=== PATIENT | male | born 1960 | race Caucasian/White ===

== ENCOUNTER 2020-05-06 07:27 | Emergency (ER) | payer OTHER ==
[2020-05-06 11:17] LABS: BASOPHIL 0.5 % (0-2); EOSINOPHIL 0.6 % (0-5); HCT 46.9 % (42.0-52.0); HGB 15.4 g/dl (13.2-18.0); LYMPHOCYTE 8.7 % (15-48); MCH 28.6 pg (25.0-31.0); MCHC 32.8 g/dL (32.0-36.0); MONOCYTE 6.5 % (0-12); MPV 9.4 fL (6.0-9.5); NEUTROPHIL 83.5 % (41-80); NRBC 0; PLT 232 K/uL (150-400); RBC 5.39 M/uL (4.70-6.00); WBC 12.8 K/uL (4.0-10.5)
[2020-05-06 11:27] LABS: ALBUMIN 3.6 g/dL (3.4-5.0); BILIRUBIN - TOTAL 0.4 mg/dL (0.2-1.0); BUN/CREAT RATIO (CALC) 18.9 RATIO; CREATININE 0.95 mg/dL (0.67-1.17); GLOBULIN (CALCULATION) 3.6 g/dL; POTASSIUM 4.5 mmol/L (3.5-5.1); TOTAL PROTEIN 7.2 g/dL (6.4-8.2)
[2020-05-06 11:40] LABS: INR 0.99 (0.9-1.2); PROTHROMBIN TIME 12.4 SECONDS (11.4-13.6); PTT 28.3 SECONDS (22.2-34.7)
[2020-05-06] MEDS ORDERED: AUGMENTIN 875-1 EACH PO (14:29)
== END 2020-05-06 15:36 | disposition home or self-care (01) ==
LOC: FER 07:27
PROVIDERS: Internal Medicine
DX: S41.111A Laceration without foreign body of right upper arm, initial encounter (principal); V49.40XA Driver injured in collision with unspecified motor vehicles in traffic accident, initial encounter; Y92.410 Unspecified street and highway as the place of occurrence of the external cause; Z23 Encounter for immunization
CPT/HCPCS: 36415; 73060; 73090; 73201; 80053; 85025; 85610; 85730; 90471; 90715; 96372; J2270; Q9967

== ENCOUNTER → 2021-08-16 | Day surgery (SDC) | payer OTHER ==
[~2021-08-16] VITALS: Ht 170.2 cm; Wt 118.0 kg
[~2021-08-16] MED LIST: AUGMENTIN 875-1 EACH PO; DICLOFENAC SODI75 MG PO; LEVOTHYROXINE100 MC2 PO; LIPITOR40 MG PO
[2021-08-16 08:14] LABS: HCT 44.3 % (42.0-52.0); MCH 29.1 pg (25.0-31.0); MCHC 33.9 g/dL (32.0-36.0); MPV 9.4 fL (6.0-9.5); RBC 5.15 M/uL (4.70-6.00); RDW 13.7 % (11.5-14.0); WBC 5.4 K/uL (4.0-10.5)
[2021-08-16 08:44] LABS: ALBUMIN 3.9 g/dL (3.4-5.0); BILIRUBIN - TOTAL 0.8 mg/dL (0.2-1.0); GLOBULIN (CALCULATION) 3.6 g/dL; POTASSIUM 3.8 mmol/L (3.5-5.1); TOTAL PROTEIN 7.5 g/dL (6.4-8.2)
== END | disposition home or self-care (01) ==
LOC: FAS 07-19 09:30
PROVIDERS: Surgery
DX: K62.89 Other specified diseases of anus and rectum (principal); K64.8 Other hemorrhoids; K58.9 Irritable bowel syndrome, unspecified; Z87.891 Personal history of nicotine dependence
CPT/HCPCS: 36415; 80053; J1100; J2704; J7120